=== PATIENT | male | born 1985 | race Caucasian/White ===

== ENCOUNTER 2021-04-20 21:07 | Emergency (ER) | payer OTHER ==
[~2021-04-20] VITALS: Ht 190.5 cm; Wt 90.7 kg
[2021-04-21] MEDS ORDERED: KETO10TA2 PO (03:44)
[2021-04-21] MEDS ORDERED: NORFLEX100MG PO (03:44)
[2021-04-25] MEDS ORDERED: ACETAMINOPHEN650 M2 (20:15)
== END 2021-04-21 04:31 | disposition home or self-care (01) ==
LOC: ER 21:07
DX: M54.2 Cervicalgia (principal); M25.511 Pain in right shoulder; M79.601 Pain in right arm

== ENCOUNTER 2021-04-27 10:57 | Outpatient (CLI) | payer OTHER ==
[~2021-04-27 10:57] MED LIST: ACETAMINOPHEN650 M2; KETO10TA2 PO; NORFLEX100MG PO
== END 2021-04-27 11:14 | disposition home or self-care (01) ==
LOC: SONOGRAMA 10:57
PROVIDERS: ATTEND Physical Medicine & Rehabilitation
DX: M25.511 Pain in right shoulder (principal)

== ENCOUNTER 2021-05-28 11:15 | Outpatient (CLI) | payer OTHER | END 2021-05-28 11:28 | disposition home or self-care (01) | LOC: MRI 11:15 | PROVIDERS: ATTEND Physical Medicine & Rehabilitation | DX: S46.211A Strain of muscle, fascia and tendon of other parts of biceps, right arm, initial encounter (principal); M25.511 Pain in right shoulder | CPT/HCPCS: 73221 ==